=== PATIENT | female | born 1990 | race Caucasian/White ===

== ENCOUNTER → 2017-11-13 | Outpatient (CLI) | payer OTHER ==
[2017-11-13 10:15] LABS: ADD MAN DIFF? NO
[2017-11-13 10:47] LABS: BASO % 1 % (0-3); EOS # 0.2 x10^3/uL (0.0-0.7); EOS % 3 % (0-3); HEMATOCRIT 36.6 % (36.0-47.0); LYMPH # 1.8 x10^3/uL (1.0-4.8); LYMPH % 32 % (24-48); MEAN CORPUSCULAR HEMOGLOBIN 31 pg (25-35); MEAN CORPUSCULAR HGB CONC 36 g/dL (31-37); MEAN CORPUSCULAR VOLUME 87 fL (79-100); MONO # 0.4 x10^3/uL (0.0-1.1); MONO % 7 % (0-9); NEUT # 3.2 x10^3uL (1.8-7.7); NEUT % 57 % (31-73); PLATELET COUNT 256 x10^3/uL (140-400); RED BLOOD COUNT 4.19 x10^6/uL (3.50-5.40); WHITE BLOOD COUNT 5.6 x10^3/uL (4.0-11.0)
[2017-11-13 10:54] LABS: ALBUMIN/GLOBULIN RATIO 1.1 (1.0-1.7); ALK PHOS 106 U/L (46-116); ALT (SGPT) 30 U/L (14-59); ANION GAP 7 (6-14); AST (SGOT) 17 U/L (15-37); BLOOD UREA NITROGEN 15 mg/dL (7-20); BUN/CREATININE RATIO 19 (6-20); CALCIUM 8.9 mg/dL (8.5-10.1); CARBON DIOXIDE 28 mmol/L (21-32); CHLORIDE 100 mmol/L (98-107); CHOLESTEROL 175 mg/dL (0-200); CREATININE 0.8 mg/dL (0.6-1.0); GFR 87.4; GLUCOSE 185 mg/dL (70-99); HDLC 70 mg/dL (40-60); LDLC 91 mg/dL (0-100); NON-HDL CHOLESTEROL 105 mg/dL (0-129); POTASSIUM 3.7 mmol/L (3.5-5.1); SODIUM 135 mmol/L (136-145); TOTAL BILIRUBIN 0.4 mg/dL (0.2-1.0); TOTAL PROTEIN 7.7 g/dL (6.4-8.2); TRIGLYCERIDES 70 mg/dL (0-150); VLDLC 14 mg/dL (0-40)
[2017-11-13 10:55] LABS: CHOLESTEROL/HDL RATIO 2.5
[2017-11-13 11:04] LABS: THYROID STIM HORMONE (TSH) 5.573 uIU/mL (0.358-3.74)
[2017-11-13 22:20] LABS: MICROALBUMIN, RANDOM URINE 3.4 ug/mL (Not Estab.)
[2017-11-14 03:18] LABS: HEMOGLOBIN A1C 5.5 % (4.8-5.6)
== END | disposition home or self-care (01) ==
LOC: LAB 10:06
DX: E11.649 Type 2 diabetes mellitus with hypoglycemia without coma (principal)
CPT/HCPCS: 36415; 80053; 80061; 82043; 83036; 84443; 85025

== ENCOUNTER → 2017-12-25 | Outpatient (CLI) | payer OTHER ==
[2017-12-25 08:48] LABS: FREE T4 1.09 ng/dL (0.76-1.46); THYROID STIM HORMONE (TSH) 3.546 uIU/mL (0.358-3.74)
== END | disposition home or self-care (01) ==
LOC: LAB 07:26
PROVIDERS: ATTEND Family Medicine
DX: E03.9 Hypothyroidism, unspecified (principal); E11.649 Type 2 diabetes mellitus with hypoglycemia without coma
CPT/HCPCS: 36415; 84439; 84443

== ENCOUNTER → 2018-01-23 | Outpatient (CLI) | payer OTHER ==
[2018-01-23 16:09] LABS: BASO % 0 % (0-3); EOS # 0.1 x10^3/uL (0.0-0.7); EOS % 1 % (0-3); HEMATOCRIT 34.8 % (36.0-47.0); HEMOGLOBIN 12.5 g/dL (12.0-15.5); LYMPH # 1.3 x10^3/uL (1.0-4.8); LYMPH % 15 % (24-48); MEAN CORPUSCULAR HEMOGLOBIN 31 pg (25-35); MEAN CORPUSCULAR HGB CONC 36 g/dL (31-37); MEAN CORPUSCULAR VOLUME 86 fL (79-100); MONO # 0.6 x10^3/uL (0.0-1.1); MONO % 7 % (0-9); NEUT # 6.4 x10^3uL (1.8-7.7); NEUT % 77 % (31-73); PLATELET COUNT 207 x10^3/uL (140-400); RED BLOOD COUNT 4.03 x10^6/uL (3.50-5.40); WHITE BLOOD COUNT 8.3 x10^3/uL (4.0-11.0)
[2018-01-23 16:56] LABS: CALCIUM 9.1 mg/dL (8.5-10.1); CREATININE 0.8 mg/dL (0.6-1.0); GFR 86.7; POTASSIUM 3.5 mmol/L (3.5-5.1)
[2018-01-23 17:14] LABS: FREE T4 1.01 ng/dL (0.76-1.46); THYROID STIM HORMONE (TSH) 1.977 uIU/mL (0.358-3.74)
[2018-01-24 01:17] LABS: HEMOGLOBIN A1C 5.5 % (4.8-5.6)
== END | disposition home or self-care (01) ==
LOC: LAB 15:41
PROVIDERS: ATTEND Obstetrics & Gynecology
DX: Z32.01 Encounter for pregnancy test, result positive (principal); O24.911 Unspecified diabetes mellitus in pregnancy, first trimester
CPT/HCPCS: 80048; 83036; 84439; 84443; 84481; 85025; 86592; 86703; 86706; 86762; 86850; 86900; 86901; 87340

== ENCOUNTER → 2018-04-26 | Outpatient (CLI) | payer OTHER ==
[2018-04-26 12:16] LABS: BASO % 0 % (0-3); EOS # 0.1 x10^3/uL (0.0-0.7); EOS % 1 % (0-3); HEMATOCRIT 33.5 % (36.0-47.0); HEMOGLOBIN 12.2 g/dL (12.0-15.5); LYMPH # 0.9 x10^3/uL (1.0-4.8); LYMPH % 12 % (24-48); MEAN CORPUSCULAR HEMOGLOBIN 33 pg (25-35); MEAN CORPUSCULAR HGB CONC 36 g/dL (31-37); MEAN CORPUSCULAR VOLUME 90 fL (79-100); MONO # 0.4 x10^3/uL (0.0-1.1); MONO % 6 % (0-9); NEUT # 5.9 x10^3uL (1.8-7.7); NEUT % 81 % (31-73); PLATELET COUNT 191 x10^3/uL (140-400); RED BLOOD COUNT 3.71 x10^6/uL (3.50-5.40); RED CELL DISTRIBUTION WIDTH 13.6 % (11.5-14.5); WHITE BLOOD COUNT 7.3 x10^3/uL (4.0-11.0)
[2018-04-26 12:42] LABS: ALBUMIN/GLOBULIN RATIO 0.8 (1.0-1.7); CALCIUM 8.8 mg/dL (8.5-10.1); CREATININE 0.7 mg/dL (0.6-1.0); GFR 101.1; POTASSIUM 3.6 mmol/L (3.5-5.1); TOTAL BILIRUBIN 0.5 mg/dL (0.2-1.0); TOTAL PROTEIN 6.8 g/dL (6.4-8.2)
[2018-04-26 12:44] LABS: CHOLESTEROL/HDL RATIO 2.3
[2018-04-26 12:54] LABS: FREE T4 1.04 ng/dL (0.76-1.46); THYROID STIM HORMONE (TSH) 2.945 uIU/mL (0.358-3.74)
[2018-04-26 14:45] LABS: BILIRUBIN,URINE NEGATIVE (NEG); CLARITY,URINE CLEAR; COLOR,URINE YELLOW; NITRITE,URINE NEGATIVE (NEG); PROTEIN,URINE NEGATIVE (NEG-TRACE); UROBILINOGEN,URINE 0.2 mg/dL (0.2 mg/dL)
[2018-04-26 14:48] LABS: BACTERIA,URINE FEW /HPF (0-FEW); RBC,URINE 0 /HPF (0-2); SQUAMOUS EPITHELIAL CELL,UR MOD /LPF; WBC,URINE OCC /HPF (0-4)
[2018-04-27 00:12] LABS: HEMOGLOBIN A1C 4.9 % (4.8-5.6)
== END | disposition home or self-care (01) ==
LOC: LAB 11:31
PROVIDERS: ATTEND Family Medicine
DX: Z00.00 Encounter for general adult medical examination without abnormal findings (principal)
CPT/HCPCS: 36415; 80053; 80061; 81001; 82043; 83036; 84439; 84443; 84481; 85025; 87086

== ENCOUNTER 2018-05-14 14:44 | Emergency (ER) | payer OTHER ==
[~2018-05-14] VITALS: Ht 170.2 cm; Wt 70.3 kg
[2018-05-14 15:25] LABS: BASO % 0 % (0-3); EOS # 0.1 x10^3/uL (0.0-0.7); EOS % 1 % (0-3); HEMATOCRIT 31.4 % (36.0-47.0); HEMOGLOBIN 10.9 g/dL (12.0-15.5); LYMPH % 14 % (24-48); MEAN CORPUSCULAR HEMOGLOBIN 32 pg (25-35); MEAN CORPUSCULAR HGB CONC 35 g/dL (31-37); MEAN CORPUSCULAR VOLUME 91 fL (79-100); MONO # 0.5 x10^3/uL (0.0-1.1); MONO % 7 % (0-9); NEUT # 5.8 x10^3uL (1.8-7.7); NEUT % 78 % (31-73); PLATELET COUNT 183 x10^3/uL (140-400); RED BLOOD COUNT 3.46 x10^6/uL (3.50-5.40); RED CELL DISTRIBUTION WIDTH 13.3 % (11.5-14.5); WHITE BLOOD COUNT 7.4 x10^3/uL (4.0-11.0)
[2018-05-14] MEDS ORDERED: PNV1TABL25 PO (15:26)
[2018-05-14] MEDS ORDERED: INSU100C SQ (15:26)
[2018-05-14] MEDS ORDERED: LEVO25TA55 PO (15:26)
[2018-05-14] MEDS ORDERED: INSU100I13 SQ (15:26)
[2018-05-14] MEDS ORDERED: IV NORMAL SALINE 1000ML BAG 1,000 ML IV ONE (15:30)
[2018-05-14] MEDS ORDERED: ACETAMINOPHEN 500 MG TABLET PO ONE (15:30)
[2018-05-14 15:32] LABS: BILIRUBIN,URINE NEGATIVE (NEG); CLARITY,URINE CLEAR; COLOR,URINE YELLOW; NITRITE,URINE NEGATIVE (NEG); PH,URINE 6.5; PROTEIN,URINE NEGATIVE (NEG-TRACE); UROBILINOGEN,URINE 0.2 mg/dL (0.2 mg/dL)
[2018-05-14 15:32] LABS: CALCIUM 8.8 mg/dL (8.5-10.1); CREATININE 0.5 mg/dL (0.6-1.0); GFR 149.1; POTASSIUM 3.3 mmol/L (3.5-5.1)
[2018-05-14 15:36] LABS: BACTERIA,URINE 0 /HPF (0-FEW); RBC,URINE 0 /HPF (0-2); SQUAMOUS EPITHELIAL CELL,UR FEW /LPF; WBC,URINE 0 /HPF (0-4)
[2018-05-14 15:38] LABS: ALBUMIN 2.7 g/dL (3.4-5.0); ALBUMIN/GLOBULIN RATIO 0.7 (1.0-1.7); TOTAL BILIRUBIN 0.4 mg/dL (0.2-1.0); TOTAL PROTEIN 6.6 g/dL (6.4-8.2)
[2018-05-14] MEDS ORDERED: POTASSIUM CHLORIDE 20 MEQ TABLET.ER. PO ONE (16:15)
[2018-05-14 17:45] VITALS: BP 110/64
--- NOTE | 2018-05-14 17:57 | PHYS DOC ---
Past Medical History Past Medical History: Diabetes-Type I, Hypothyroid Past Surgical History: No Surgical History Alcohol Use: None Drug Use: None Adult General Chief Complaint Chief Complaint: HEADACHE HPI HPI Patient is a 28 year old [f__sex] who presents with [] Review of Systems Review of Systems Constitutional: Denies fever or chills [] Eyes: Denies change in visual acuity, redness, or eye pain [] HENT: Denies nasal congestion or sore throat [] Respiratory: Denies cough or shortness of breath [] Cardiovascular: No additional information not addressed in HPI [] GI: Denies abdominal pain, nausea, vomiting, bloody stools or diarrhea [] : Denies dysuria or hematuria [] Musculoskeletal: Denies back pain or joint pain [] Integument: Denies rash or skin lesions [] Neurologic: Denies headache, focal weakness or sensory changes [] Endocrine: Denies polyuria or polydipsia [] All other systems were reviewed and found to be within normal limits, except as documented in this note. Current Medications Current Medications Current Medications Medications (Trade) Dose Ordered Sig/Rosemary Start Time Stop Time Status Last Admin Dose Admin Acetaminophen (Tylenol) 1,000 mg 1X ONCE 05/14/18 15:30 05/14/18 15:31 DC 05/14/18 15:42 1,000 MG Potassium Chloride (Klor-Con) 40 meq 1X ONCE 05/14/18 16:15 05/14/18 16:16 DC 05/14/18 16:18 40 MEQ Sodium Chloride 1,000 ml @ 1,000 mls/hr 1X ONCE 05/14/18 15:30 05/14/18 16:29 DC 05/14/18 15:43 1,000 MLS/HR Allergies Allergies Allergies Coded Allergies Type Severity Reaction Last Updated Verified No Known Drug Allergies 05/14/18 No Physical Exam Physical Exam Constitutional: Well developed, well nourished, no acute distress, non-toxic appearance. [] HENT: Normocephalic, atraumatic, bilateral external ears normal, oropharynx moist, no oral exudates, nose normal. [] Eyes: PERRLA, EOMI, conjunctiva normal, no discharge. [] Neck: Normal range of motion, no tenderness, supple, no stridor. [] Cardiovascular:Heart rate regular rhythm, no murmur [] Lungs & Thorax: Bilateral breath sounds clear to auscultation [] Abdomen: Bowel sounds normal, soft, no tenderness, no masses, no pulsatile masses. [] Skin: Warm, dry, no erythema, no rash. [] Back: No tenderness, no CVA tenderness. [] Extremities: No tenderness, no cyanosis, no clubbing, ROM intact, no edema. [] Neurologic: Alert and oriented X 3, normal motor function, normal sensory function, no focal deficits noted. [] Psychologic: Affect normal, judgement normal, mood normal. [] Current Patient Data Vital Signs Vital Signs Date Time Temp Pulse Resp B/P (MAP) Pulse Ox O2 Delivery O2 Flow Rate FiO2 05/14/18 15:44 80 18 100 05/14/18 15:05 98.1 154/71 (98) Room Air 98.1 Lab Values Laboratory Tests Test 05/14/18 15:12 05/14/18 15:18 White Blood Count 7.4 x10^3/uL (4.0-11.0) Red Blood Count 3.46 x10^6/uL (3.50-5.40) L Hemoglobin 10.9 g/dL (12.0-15.5) L Hematocrit 31.4 % (36.0-47.0) L Mean Corpuscular Volume 91 fL (79-100) Mean Corpuscular Hemoglobin 32 pg (25-35) Mean Corpuscular Hemoglobin Concent 35 g/dL (31-37) Red Cell Distribution Width 13.3 % (11.5-14.5) Platelet Count 183 x10^3/uL (140-400) Neutrophils (%) (Auto) 78 % (31-73) H Lymphocytes (%) (Auto) 14 % (24-48) L Monocytes (%) (Auto) 7 % (0-9) Eosinophils (%) (Auto) 1 % (0-3) Basophils (%) (Auto) 0 % (0-3) Neutrophils # (Auto) 5.8 x10^3uL (1.8-7.7) Lymphocytes # (Auto) 1.0 x10^3/uL (1.0-4.8) Monocytes # (Auto) 0.5 x10^3/uL (0.0-1.1) Eosinophils # (Auto) 0.1 x10^3/uL (0.0-0.7) Basophils # (Auto) 0.0 x10^3/uL (0.0-0.2) Sodium Level 138 mmol/L (136-145) Potassium Level 3.3 mmol/L (3.5-5.1) L Chloride Level 105 mmol/L (98-107) Carbon Dioxide Level 24 mmol/L (21-32) Anion Gap 9 (6-14) Blood Urea Nitrogen 8 mg/dL (7-20) Creatinine 0.5 mg/dL (0.6-1.0) L Estimated GFR (Cockcroft-Gault) 149.1 BUN/Creatinine Ratio 16 (6-20) Glucose Level 128 mg/dL (70-99) H Calcium Level 8.8 mg/dL (8.5-10.1) Total Bilirubin 0.4 mg/dL (0.2-1.0) Aspartate Amino Transferase (AST) 34 U/L (15-37) Alanine Aminotransferase (ALT) 62 U/L (14-59) H Alkaline Phosphatase 96 U/L (46-116) Total Protein 6.6 g/dL (6.4-8.2) Albumin 2.7 g/dL (3.4-5.0) L Albumin/Globulin Ratio 0.7 (1.0-1.7) L Urine Collection Type Unknown Urine Color Yellow Urine Clarity Clear Urine pH 6.5 Urine Specific [place] 1.010 Urine Protein Negative mg/dL (NEG-TRACE) Urine Glucose (UA) Negative mg/dL (NEG) Urine Ketones (Stick) Negative mg/dL (NEG) Urine Blood Negative (NEG) Urine Nitrite Negative (NEG) Urine Bilirubin Negative (NEG) Urine Urobilinogen Dipstick 0.2 mg/dL (0.2 mg/dL) Urine Leukocyte Esterase Negative (NEG) Urine RBC 0 /HPF (0-2) Urine WBC 0 /HPF (0-4) Urine Squamous Epithelial Cells Few /LPF Urine Bacteria 0 /HPF (0-FEW) Laboratory Tests 05/14/18 15:12 Laboratory Tests 05/14/18 15:12 EKG EKG [] Radiology/Procedures Radiology/Procedures [] Course & Med Decision Making Course & Med Decision Making Pertinent Labs and Imaging studies reviewed. (See chart for details) [] Dragon Disclaimer Dragon Disclaimer This electronic medical record was generated, in whole or in part, using a voice recognition dictation system. Departure Departure Impression: Primary Impression: Headache Additional Impression: Blurry vision, bilateral Disposition: 01 HOME, SELF-CARE Condition: STABLE Referrals: RASHID ARANA MD (PCP) JOJO CHIN MD Patient Instructions: Migraine Headache Additional Instructions: Follow up with your OB and Neurology for further investigation into your headache. If worsening, return to the ED. Problem Qualifiers GUERA LAM APRN May 14, 2018 17:57
== END 2018-05-14 18:13 | disposition home or self-care (01) ==
LOC: ER 14:44
DX: R51 Headache (principal); H53.8 Other visual disturbances; E10.9 Type 1 diabetes mellitus without complications; E03.9 Hypothyroidism, unspecified
CPT/HCPCS: 36415; 80053; 81001; 85025; 99283; J7030

== ENCOUNTER 2018-06-19 10:29 | Observation (INO) | payer OTHER ==
[~2018-06-19 10:29] MED LIST: INSU100C SQ; INSU100I13 SQ; LEVO25TA55 PO; PNV1TABL25 PO
[2018-06-19 11:13] LABS: BILIRUBIN,URINE NEGATIVE (NEG); CLARITY,URINE CLEAR; COLOR,URINE YELLOW; NITRITE,URINE NEGATIVE (NEG); PROTEIN,URINE NEGATIVE (NEG-TRACE)
[2018-06-19 11:19] LABS: SQUAMOUS EPITHELIAL CELL,UR MANY /LPF
[2018-06-19 11:20] LABS: BACTERIA,URINE FEW /HPF (0-FEW); RBC,URINE 0 /HPF (0-2); WBC,URINE OCC /HPF (0-4)
[2018-06-19 11:21] LABS: BARBITURATES NEG (NEG); BENZODIAZEPINES NEG (NEG); CANNABINOIDS NEG (NEG); COCAINE NEG (NEG); METHADONE NEG (NEG); OPIATES NEG (NEG); PHENCYCLIDINE NEG (NEG)
[2018-06-19 11:24] LABS: AMPHETAMINE/METHAMPHETAMINE NEG (NEG)
== END 2018-06-19 11:35 | disposition home or self-care (01) ==
LOC: 3 SO LND 10:29
PROVIDERS: ADMIT Obstetrics & Gynecology; ATTEND Obstetrics & Gynecology
DX: O24.013 Pre-existing type 1 diabetes mellitus, in pregnancy, third trimester (principal); E10.9 Type 1 diabetes mellitus without complications; Z3A.28 28 weeks gestation of pregnancy
CPT/HCPCS: 80307; 81001; G0379; 59025

== ENCOUNTER 2018-06-26 11:53 | Observation (INO) | payer OTHER ==
[2018-06-26] MEDS ORDERED: IV RINGERS,LACTATED 1000ML 1,000 ML IV SCH (12:10)
[2018-06-26 12:30] LABS: BILIRUBIN,URINE NEGATIVE (NEG); CLARITY,URINE CLEAR; COLOR,URINE YELLOW; NITRITE,URINE NEGATIVE (NEG); PROTEIN,URINE NEGATIVE (NEG-TRACE)
[2018-06-26 12:51] LABS: BACTERIA,URINE 0 /HPF (0-FEW); SQUAMOUS EPITHELIAL CELL,UR MOD /LPF; WBC,URINE OCC /HPF (0-4)
--- NOTE | 2018-06-26 13:27 | RAD ---
Biophysical profile History: Type 1 diabetes Findings: A single intrauterine is present in the cephalic position. heart rate is 141. breathing movements: 2 out of 2. motion: 2 out of 2. tone: 2 out of 2. Amniotic fluid volume: 2 out of 2. Therefore, the biophysical profile score is 8 out of 8. JIA using the 4 quadrant method is 19.2 cm. Impression: Biophysical profile score is 8 out of 8. Electronically signed by: Waldemar Terrell MD (06/26/2018 1:24 PM) [id number]
== END 2018-06-26 13:00 | disposition home or self-care (01) ==
LOC: 3 SO LND 11:53
PROVIDERS: ADMIT Obstetrics & Gynecology; ATTEND Obstetrics & Gynecology
DX: O24.013 Pre-existing type 1 diabetes mellitus, in pregnancy, third trimester (principal); Z3A.29 29 weeks gestation of pregnancy
CPT/HCPCS: 76819; 81001; G0379; 59025

== ENCOUNTER 2018-07-03 10:03 | Observation (INO) | payer OTHER ==
[~2018-07-03] VITALS: Ht 170.2 cm; Wt 77.1 kg
[~2018-07-03 10:03] MED LIST changes: -DOCU-109 PO; -IBUP-1027 PO; -OXYC1TAB15 PO
--- NOTE | 2018-07-03 12:03 | RAD ---
EXAM: biophysical profile. HISTORY: Diabetes. TECHNIQUE: Sonographic imaging of a gravid uterus was performed. COMPARISON: 06/26/2018. FINDINGS: There is a single intrauterine fetus in cephalic presentation with a heart rate of 152 beats per minute. There is normal breathing motion, body motion and tone and the anatomic fluid volume is normal. The amniotic fluid index is 16.1 cm. The biparietal diameter is 8.36 cm, corresponding with 33 weeks and 5 days and the 98th percentile. The head circumference is 31.44 cm, corresponding with 35 weeks and 2 days and the 99th percentile. The abdominal circumference is 31.01 cm, corresponding with 35 weeks and 0 days, not within range for assessment of a growth percentile. The femoral length is 6.13 cm, corresponding with 31 weeks and 6 days and the 67th percentile. The estimated weight based on ultrasound measurements is 2326 g and the estimated weight is at the 91st percentile for an estimated gestational age of 30 weeks and 5 days based on LMP. The estimated gestational age based on ultrasound measurements is 34 weeks and 0 days and the estimated due date is 08/14/2018. IMPRESSION: 1. Single intrauterine fetus in cephalic presentation with a heart rate of 152 bpm and biophysical profile 8/8. 2. Estimated weight based on ultrasound measurements at the 91st percentile for a gestational age based on LMP of 30 weeks and 5 days. The gestational age based on ultrasound measurements is 34 weeks and 0 days, described in detail above. Electronically signed by: Margarita Miles MD (07/03/2018 12:00 PM) [id number]
== END 2018-07-03 11:23 | disposition home or self-care (01) ==
LOC: 3 SO LND 10:03
PROVIDERS: ADMIT Obstetrics & Gynecology; ATTEND Obstetrics & Gynecology
DX: O24.813 Other pre-existing diabetes mellitus in pregnancy, third trimester (principal); Z3A.30 30 weeks gestation of pregnancy
CPT/HCPCS: 76819; G0379

== ENCOUNTER → 2018-07-03 | Outpatient (CLI) | payer OTHER ==
[~2018-07-03] MED LIST changes: +DOCU-109 PO; +IBUP-1027 PO; +OXYC1TAB15 PO
[2018-07-03 11:44] LABS: BASO % 0 % (0-3); EOS # 0.1 x10^3/uL (0.0-0.7); EOS % 1 % (0-3); HEMATOCRIT 30.8 % (36.0-47.0); HEMOGLOBIN 10.6 g/dL (12.0-15.5); LYMPH # 1.1 x10^3/uL (1.0-4.8); LYMPH % 13 % (24-48); MEAN CORPUSCULAR HEMOGLOBIN 31 pg (25-35); MEAN CORPUSCULAR HGB CONC 35 g/dL (31-37); MEAN CORPUSCULAR VOLUME 90 fL (79-100); MONO # 0.4 x10^3/uL (0.0-1.1); MONO % 6 % (0-9); NEUT # 6.3 x10^3uL (1.8-7.7); NEUT % 80 % (31-73); PLATELET COUNT 136 x10^3/uL (140-400); RED BLOOD COUNT 3.41 x10^6/uL (3.50-5.40); RED CELL DISTRIBUTION WIDTH 13.1 % (11.5-14.5); WHITE BLOOD COUNT 7.9 x10^3/uL (4.0-11.0)
== END | disposition home or self-care (01) ==
LOC: LAB 09:54
PROVIDERS: ATTEND Obstetrics & Gynecology
DX: O09.93 Supervision of high risk pregnancy, unspecified, third trimester (principal); Z3A.30 30 weeks gestation of pregnancy
CPT/HCPCS: 36415; 85025

== ENCOUNTER 2018-07-08 11:41 | Observation (INO) | payer OTHER ==
[~2018-07-08 11:41] MED LIST changes: -DOCU-109 PO; -IBUP-1027 PO; -OXYC1TAB15 PO
--- NOTE | 2018-07-08 15:09 | RAD ---
Ultrasound biophysical profile, 07/08/2018: HISTORY: Maternal diabetes The limited exam of the gravid uterus demonstrates a single fetus in a cephalic orientation. The heart rate is 133 bpm. The amniotic fluid index is 21.3. It measured 16.1 on the previous study of 06/25/2018. This difference may be on a technical basis. The placenta lies posteriorly extending into the fundal region. The weight was estimated at 5 pounds and 3 ounces +/- 12 ounces. The following biophysical profile scores were obtained: breathing movements-2 motion-2 tone-2 Amniotic fluid volume-2 Total score-8 out of 8: IMPRESSION: 1. The ultrasound component of the biophysical profile score is 8 out of 8. 2. The measured amniotic fluid index has increased and is now at the upper limits of normal, measuring 21.3. Electronically signed by: Alex Sun MD (07/08/2018 3:05 PM) [facility]
== END 2018-07-08 12:55 | disposition home or self-care (01) ==
LOC: 3 SO LND 11:41
PROVIDERS: ADMIT Obstetrics & Gynecology; ATTEND Obstetrics & Gynecology
DX: O24.013 Pre-existing type 1 diabetes mellitus, in pregnancy, third trimester (principal); Z3A.31 31 weeks gestation of pregnancy
CPT/HCPCS: 76819; G0379; 59025

== ENCOUNTER → 2018-07-08 | Outpatient (CLI) | payer OTHER ==
[~2018-07-08] MED LIST changes: +DOCU-109 PO; +IBUP-1027 PO; +OXYC1TAB15 PO
[2018-07-09 04:14] LABS: HEMOGLOBIN A1C 5.4 % (4.8-5.6)
== END | disposition home or self-care (01) ==
LOC: LAB 11:33
PROVIDERS: ATTEND Obstetrics & Gynecology
DX: O09.93 Supervision of high risk pregnancy, unspecified, third trimester (principal); Z3A.31 31 weeks gestation of pregnancy
CPT/HCPCS: 36415; 83036; 84443

== ENCOUNTER 2018-07-17 11:56 | Observation (INO) | payer OTHER ==
[2018-07-17 12:27] LABS: BILIRUBIN,URINE NEGATIVE (NEG); CLARITY,URINE CLEAR; COLOR,URINE YELLOW; NITRITE,URINE NEGATIVE (NEG); PH,URINE 6.5; PROTEIN,URINE NEGATIVE (NEG-TRACE)
[2018-07-17] MEDS ORDERED: IV RINGERS,LACTATED 1000ML 1,000 ML IV SCH (12:30)
[2018-07-17 12:40] LABS: BACTERIA,URINE MODERATE /HPF (0-FEW); SQUAMOUS EPITHELIAL CELL,UR MANY /LPF
--- NOTE | 2018-07-17 14:40 | RAD ---
Biophysical profile: Clinical indications: Maternal diabetes. Weekly nonstress test. Findings: A single intrauterine is present in the cephalic position. heart rate is 123. breathing movements: 2. motion: 2. tone: 2. Amniotic fluid volume: 2. Therefore, the biophysical profile score is 8 out of 8. Cervical length is 3.2 cm. JIA using the 4 quadrant method is 12.7 cm. Impression: Biophysical profile score is 8 out of 8. Electronically signed by: Gene West MD (07/17/2018 2:38 PM) [place] [id number]
== END 2018-07-17 14:45 | disposition home or self-care (01) ==
LOC: 3 SO LND 11:56
PROVIDERS: ADMIT Obstetrics & Gynecology; ATTEND Obstetrics & Gynecology
DX: O24.013 Pre-existing type 1 diabetes mellitus, in pregnancy, third trimester (principal); Z3A.32 32 weeks gestation of pregnancy
CPT/HCPCS: 76819; 81001; 87086; G0378; G0379; 59025

== ENCOUNTER 2018-07-24 15:30 | Observation (INO) | payer OTHER ==
--- NOTE | 2018-07-24 18:36 | RAD ---
Obstetric ultrasound limited: Reason for examination: Biophysical profile for type 1 diabetes. Cervix is normal in length at 4.1 cm and is closed. The placenta is posterior with limited visualization. Single viable intrauterine gestation is present with a cardiac rate of 143 bpm. Fetus is in cephalic presentation. Adequate amniotic fluid is present with a amniotic fluid index of 12.2 cm. Biparietal diameter is 9.13 cm corresponding to gestational age of 37 weeks 0 days. Head circumference is 32.12 cm corresponding to gestational age of 36 weeks 2 days. Abdominal circumference is 33.65 cm corresponding to gestational age of 37 weeks 4 days. Femur length is 6.56 cm corresponding to gestational age of 33 weeks 6 days. Cephalic index 86.7. Head circumference to abdominal circumference ratio 0.95. Femur length to biparietal parietal diameter ratio 71.9. Femur length to head circumference ratio is 20.4. Femur length to abdominal circumference ratio is 19.5. Estimated weight 2942 g (6 lbs. 8 oz.). Estimated gestational age by last menstrual period 33 weeks 5 days with estimated date of confinement of 09/06/2018. Estimated gestational age is 36 weeks 1 day with estimated date of confinement of 08/20/2018. Biophysical profile: breathing movement 2. motion 2. tone 2. Amniotic fluid volume 2. Total score 8 out of 8. IMPRESSION: Single viable intrauterine gestation with mean gestational age estimated at 36 weeks 1 day with an estimated date of confinement of 08/20/2018. This is 2 weeks old than clinical dates. Biophysical profile score 8 out of 8. Electronically signed by: Michelle Hassan MD (07/24/2018 6:33 PM) [facility]
== END 2018-07-24 17:47 | disposition home or self-care (01) ==
LOC: 3 SO LND 15:30
PROVIDERS: ADMIT Obstetrics & Gynecology; ATTEND Obstetrics & Gynecology
DX: O24.013 Pre-existing type 1 diabetes mellitus, in pregnancy, third trimester (principal); Z3A.33 33 weeks gestation of pregnancy
CPT/HCPCS: 76815; G0378; G0379; 59025

== ENCOUNTER 2018-08-01 11:30 | Observation (INO) | payer OTHER ==
--- NOTE | 2018-08-01 13:53 | RAD ---
Biophysical profile Clinical Indication: diabetic; weekly BPP Technique: Multiple grayscale images of the pelvis are obtained. Findings: A single intrauterine is present in the cephalic position. heart rate is 131 beats per minute. breathing movements: 2 out of 2. motion: 2 out of 2. tone: 2 out of 2. Amniotic fluid volume: 2 out of 2. Therefore, the biophysical profile score is 8 out of 8. JIA using the 4 quadrant method is 15.9 cm. Cervix length is 3.1 cm. BPD = 9.1 cm for 36 weeks 6 days. HC = 31.6 cm for 35 weeks 4 days. AC = 34 cm for 37 weeks 6 days. FL = 7 cm for 35 weeks 6 days. HC/AC ratio = 0.93. Overall estimated sonographic gestational age is 36 weeks and 4 days. EDC ultrasound is August 25, 2018. IMPRESSION: Biophysical profile score is 8 out of 8. Electronically signed by: Jony Rankin MD (08/01/2018 1:51 PM) [id number]
== END 2018-08-01 13:29 | disposition home or self-care (01) ==
LOC: 3 SO LND 11:30
PROVIDERS: ADMIT Obstetrics & Gynecology; ATTEND Obstetrics & Gynecology
DX: O24.013 Pre-existing type 1 diabetes mellitus, in pregnancy, third trimester (principal); Z3A.34 34 weeks gestation of pregnancy
CPT/HCPCS: 76819; G0378; G0379; 59025

== ENCOUNTER 2018-08-13 00:11 | Observation (INO) | payer OTHER ==
--- NOTE | 2018-08-13 02:01 | RAD ---
Examination: Ultrasound Biophysical profile HISTORY: History of type 1 diabetes COMPARISON: None available. FINDINGS: breathing movements is 0 / 2. motion is 2 / 2. tone is 2 / 2. Amniotic fluid index is 2 / 2. position is cephalic. heart rate 137 bpm. Estimated weight 3465 g. Biparietal diameter measures 9.4 cm corresponding to 38 weeks and 2 days. Head circumference measures 33.4 cm corresponding to 38 weeks and 2 days. Abdominal circumference measures 34.8 cm corresponding to 38 weeks and 5 days. Femur length measures 7.3 cm corresponding to 37 weeks and 4 days. LMP is 11/30/2017 Clinical age 36 weeks and 4 days with expected date of delivery by LMP 09/06/2018. Ultrasound age 38 weeks and 2 days with expected date of delivery by ultrasound 08/25/2018. Cephalic index 82.3. Head circumference to abdominal circumference ratio 0.9 Femur length to biparietal diameter ratio 77.9 Femur length head circumference is 21.9 Femur length abdominal circumference ratio 21.1 IMPRESSION: The biophysical profile score is 6 / 8. Electronically signed by: Waldemar Terrell MD (08/13/2018 1:58 AM) [id number]
== END 2018-08-13 01:40 | disposition home or self-care (01) ==
LOC: 3 SO LND 00:11
PROVIDERS: ADMIT Obstetrics & Gynecology; ATTEND Obstetrics & Gynecology
DX: O24.013 Pre-existing type 1 diabetes mellitus, in pregnancy, third trimester (principal); Z3A.38 38 weeks gestation of pregnancy
CPT/HCPCS: 76819; G0379; 59025

== ENCOUNTER 2018-08-15 09:51 | Observation (INO) | payer OTHER ==
--- NOTE | 2018-08-15 11:21 | RAD ---
Ultrasound biophysical profile scoring, 08/15/2018: HISTORY: Type 1 diabetes, high risk The limited exam of the gravid uterus demonstrates a single fetus in a cephalic orientation. The heart rate is 133 bpm. A full survey was not performed at this time. The placenta is located posteriorly extending into the fundal region. The placenta demonstrates multiple echogenic foci. A normal amount of amniotic fluid is present with the JIA calculated at 11.6. The following biophysical profile scores were obtained: breathing movements-2 motion-2 tone-2 Amniotic fluid volume-2 Total score-8 out of 8 IMPRESSION: The ultrasound component of the biophysical profile score is 8 out of 8. Electronically signed by: Alex Sun MD (08/15/2018 11:18 AM) [facility]
== END 2018-08-15 11:42 | disposition home or self-care (01) ==
LOC: 3 SO LND 09:51
PROVIDERS: ADMIT Obstetrics & Gynecology; ATTEND Obstetrics & Gynecology
DX: O24.013 Pre-existing type 1 diabetes mellitus, in pregnancy, third trimester (principal); Z3A.36 36 weeks gestation of pregnancy
CPT/HCPCS: 76819; G0378; G0379; 59025

== ENCOUNTER 2018-08-22 09:51 | Observation (INO) | payer OTHER ==
--- NOTE | 2018-08-22 11:54 | RAD ---
Ultrasound biophysical profile, 08/22/2018: History: Diabetes The limited exam of the gravid uterus demonstrates a single fetus in a cephalic orientation. The heart rate is 140 bpm. The placenta lies posteriorly extending into the fundal region. There are prominent echogenic foci in the placenta. The amniotic fluid index is 18.8. weight estimate was requested and was calculated at 10 pounds and 1 ounce +/- 24 ounces. A full survey was not performed. The following biophysical profile scores were obtained: breathing movements-2 motion-2 tone-2 Amniotic fluid volume-2 Total score-8 out of 8: IMPRESSION: 1. The ultrasound component of the biophysical profile score is 8 out of 8. 2. The weight was estimated at 10 pounds and 1 ounce +/- 24 ounces.
== END 2018-08-22 11:30 | disposition home or self-care (01) ==
LOC: 3 SO LND 09:51
PROVIDERS: ADMIT Obstetrics & Gynecology; ATTEND Obstetrics & Gynecology
DX: O24.013 Pre-existing type 1 diabetes mellitus, in pregnancy, third trimester (principal); Z3A.37 37 weeks gestation of pregnancy
CPT/HCPCS: 76819; G0378; G0379

== ENCOUNTER 2018-08-25 05:22 | Inpatient (IN) | payer OTHER ==
[~2018-08-25] VITALS: Ht 170.2 cm; Wt 83.0 kg
[2018-08-25] VITALS (7 sets, daily range): BP systolic 119–144; BP diastolic 80–99
[2018-08-25] MEDS ORDERED: CITRIC ACID/SODIUM CITRATE 30 ML SOLUTION. ONE (06:10)
[2018-08-25] MEDS ORDERED: CITRIC ACID/SODIUM CITRATE 30 ML SOLUTION. PO ONE (06:30)
[2018-08-25] MEDS: IV RINGERS,LACTATED 1000ML 1,000 ML IV SCH ×3 (06:55→21:18)
[2018-08-25] MEDS ORDERED: fentaNYL PF VIAL 100 MCG/2 ML VIAL ONE (07:47)
[2018-08-25] MEDS ORDERED: PHENYLEPHRINE in 0.9% NACL PF 1 MG/10 ML SYRINGE. IV ONE (07:47)
[2018-08-25] MEDS ORDERED: MORPHINE PF 5 MG/10 ML VIAL. ONE (07:47)
[2018-08-25] MEDS ORDERED: ePHEDrine PF IN SALINE 50 MG/10 ML SYRINGE. IV ONE (07:47)
[2018-08-25] MEDS ORDERED: ONDANSETRON PF 4 MG/2 ML VIAL. ONE (07:48)
[2018-08-25] MEDS ORDERED: FAMOTIDINE 20 MG/2 ML VIAL ONE (07:48)
[2018-08-25] MEDS ORDERED: OXYTOCIN 10 UNIT/ML VIAL. ONE ×2 (07:48→08:41)
[2018-08-25] MEDS ORDERED: METOCLOPRAMIDE HCL 10 MG/2 ML VIAL. ONE (07:48)
--- NOTE | 2018-08-25 08:06 | PDOC1 ---
OB - History Hx of Present Care: Good Care Ultrasounds: Normal mid trimester US Obstetrical Complications: None Medical Complications: Other (DM Type 1) Past Family/Social History * Past Medical, Surgical, Family and Obstetric Histories reviewed from chart. Rubella: Immune RPR/VDRL: Negative GBS Status: Negative HBsAG: Negative OB - Chief Complaint & HPI Date of Admission: Date of Admission: August 25, 2018 at 05:22 Chief Complaint/History : 1 Para: 0 EGA: 37 Reason for admission: section Indication for : other (DM Type 1 and LGA) Admission Nurse Assessment Rev: Yes OB - Admission Exam Physical Exam Vitals: VS - Last 72 Hours, by Label Date Time Temp Pulse Resp B/P (MAP) Pulse Ox O2 Delivery O2 Flow Rate FiO2 08/25/18 06:37 97.8 71 20 141/99 (113) Room Air 97.8 HEENT: Normal Heart: Regular Rate Lungs: Clear Abdomen: Gravid, Non tender, Soft Extremities: Edema Reflexes: Normal Cervical Dilatation: 2cm Effacement: 50% Station: -3 Membranes: Intact Heart Rate: Normal Accelerations: Accelerations Present Decelerations: No decelerations Contractions on Admission: 6-10 Minutes Apart Intensity: Mild Text A: 37 wks IUP DM Type 1 LGA P: Admit for c/s. GREG TAPIA Jr, MD August 25, 2018 08:06
[2018-08-25 08:47] LABS: BASO % 0 % (0-3); EOS # 0.1 x10^3/uL (0.0-0.7); EOS % 2 % (0-3); HEMATOCRIT 32.9 % (36.0-47.0); HEMOGLOBIN 11.3 g/dL (12.0-15.5); LYMPH # 1.6 x10^3/uL (1.0-4.8); LYMPH % 23 % (24-48); MEAN CORPUSCULAR HEMOGLOBIN 31 pg (25-35); MEAN CORPUSCULAR HGB CONC 35 g/dL (31-37); MEAN CORPUSCULAR VOLUME 90 fL (79-100); MONO # 0.7 x10^3/uL (0.0-1.1); MONO % 9 % (0-9); NEUT # 4.6 x10^3uL (1.8-7.7); NEUT % 65 % (31-73); PLATELET COUNT 109 x10^3/uL (140-400); RED BLOOD COUNT 3.65 x10^6/uL (3.50-5.40); RED CELL DISTRIBUTION WIDTH 13.5 % (11.5-14.5)
[2018-08-25] MEDS ORDERED: SIMETHICONE 80 MG TAB.CHEW PO PRN (09:00)
[2018-08-25] MEDS ORDERED: ONDANSETRON PF 4 MG/2 ML VIAL. IV PRN (09:00)
[2018-08-25] MEDS ORDERED: MAG HYDROX/ALUMINUM HYD/SIMETH 30 ML ORAL.SUSP PO PRN (09:00)
[2018-08-25] MEDS ORDERED: OXYTOCIN 30 UNIT/500 ML PREMIX 500 ML IV PRN (09:00)
[2018-08-25] MEDS ORDERED: diphenhydrAMINE ORAL ELIXIR 12.5 MG/5 ML ML PO PRN (09:00)
[2018-08-25] MEDS ORDERED: 0.9 % SODIUM CHLORIDE 10 ML DISP.SYRIN. IV PRN (09:00)
[2018-08-25] MEDS ORDERED: KETOROLAC 30 MG/ML VIAL. IV PRN (09:00)
[2018-08-25] MEDS ORDERED: ZOLPIDEM 5 MG TABLET. PO PRN (09:00)
--- NOTE | 2018-08-25 09:00 | PDOC4 ---
OB Operative Note Date: August 25, 2018 PRE OP DIAGNOSIS: Other (DM Type 1 and LGA) POST OP DIAGNOSIS: Other (Same) OPERATION PERFORMED: [facility] Surgeon Dr. Rosen Anesthesia: Regional (Spinal) Blood Loss 700 ml Specimen placenta and OB Findings: Position (Vertex), Sex (Male), (8/9), Weight (8 Lb 14 oz), Nuchal Cord (x1) Complications none Additional Remarks pt. GREG Garcia Jr, MD August 25, 2018 09:00
--- NOTE | 2018-08-25 09:27 | OP ---
DATE OF SURGERY: PREOPERATIVE DIAGNOSES: 1. Diabetes type 1. 2. LGA. POSTOPERATIVE DIAGNOSES: 1. Diabetes type 1. 2. LGA. PROCEDURE: Primary low transverse section. SURGEON: Greg Rosen MD ANESTHESIA: Spinal. ESTIMATED BLOOD LOSS: 700 mL. COMPLICATIONS: None. FINDINGS: Viable male , Apgars 8 and 9, weight 8 pounds 14 ounces, nuchal cord x 1, 3-vessel cord placenta delivered manually intact. SUMMARY: 1 at 37-1/2 weeks' gestation who presented for primary low transverse section secondary to diabetes type 1 and LGA . The patient was counseled on risks, benefits and expectations and voiced clear understanding to proceed. DESCRIPTION OF PROCEDURE: The patient was taken to surgery suite and placed in dorsal supine position. She was prepped with ChloraPrep and draped in a sterile fashion. After adequate anesthesia, a Pfannenstiel skin incision was made with scalpel down to and through the fascia. Fascia was extended laterally using curved Alvarez scissors. The superior edge of the fascia was grasped with two Niles clamps and dissected free of the abdominal rectus muscles using blunt dissection along with Bovie cautery. The same process took place inferiorly. The abdominal rectus was dissected bluntly at the midline. Peritoneum was grasped with 2 hemostats and entered sharply with Metzenbaum scissors. This incision was extended superiorly as well as inferiorly. The Darci ring retractor was placed. A low transverse hysterotomy incision with a scalpel down to the amniotic sac. Hysterotomy incision was extended laterally and superiorly digitally. Amniotomy was performed with Allis clamp, which elicited a moderate amount of clear fluid. With the aid of fundal pressure, the infant's head was delivered in a smooth atraumatic manner. Nuchal cord x 1 was visualized and reduced. With additional fundal pressure, the anterior shoulder was delivered followed by posterior shoulder and rest of male was delivered. Infant was suctioned with bulb syringe orally and nasally, umbilical cord was clamped twice and cut and viable male infant was handed to waiting nursing staff. Umbilical cord blood was then obtained. Three-vessel cord placenta was delivered manually intact. The uterus was then exteriorized and cleared of clot and debris with a moist lap. Hysterotomy incision was reapproximated using #1 Vicryl suture in running locked fashion and imbricated layer of #1 Vicryl suture was utilized for better hemostasis. The uterus palpated firm. Fallopian tubes, ovaries appeared normal bilaterally. Posterior cul-de-sac was cleared of clot and debris with moist lap. The uterus was then returned to the abdomen. The pericolic gutters were cleared of clot and debris with moist lap. Hysterotomy incision was reviewed and was hemostatic. The Darci ring retractor was removed. Peritoneum was reapproximated using #1 Vicryl suture in a running fashion. Fascia was reapproximated using 0 Vicryl suture in running fashion. Skin was reapproximated using 4-0 Vicryl suture in a subcuticular manner. The patient tolerated the procedure well and was taken to the recovery room in stable condition. Sponge and needle count correct x 3. GREG ROSEN MD DR: BRAD/ahmet JOB#: [id number] / [id number]
[2018-08-25] MEDS ORDERED: METOCLOPRAMIDE 10 MG TABLET. PO PRN (13:00)
[2018-08-25] MEDS ORDERED: METOCLOPRAMIDE HCL 10 MG/2 ML VIAL. IV PRN (13:00)
[2018-08-25] MEDS ORDERED: INSULIN LISPRO SQ SCH (17:00)
[2018-08-25] MEDS ORDERED: FERROUS SULFATE 325 MG TABLET. PO SCH (17:00)
[2018-08-26] MEDS: INSULIN GLARGINE SQ SCH ×2 (00:11→23:05)
[2018-08-26 00:15] VITALS: BP 143/75
[2018-08-26] MEDS: oxyCODONE/APAP 5/325 1 TAB TABLET PO PRN ×4 (05:05→23:02)
[2018-08-26] MEDS: IBUPROFEN 400 MG TABLET. PO PRN ×2 (05:05→17:03)
[2018-08-26 06:02] LABS: BASO % 0 % (0-3); EOS # 0.1 x10^3/uL (0.0-0.7); EOS % 1 % (0-3); HEMATOCRIT 28.8 % (36.0-47.0); HEMOGLOBIN 10.2 g/dL (12.0-15.5); LYMPH % 16 % (24-48); MEAN CORPUSCULAR HEMOGLOBIN 32 pg (25-35); MEAN CORPUSCULAR HGB CONC 36 g/dL (31-37); MEAN CORPUSCULAR VOLUME 89 fL (79-100); MONO # 0.4 x10^3/uL (0.0-1.1); MONO % 6 % (0-9); NEUT # 4.7 x10^3uL (1.8-7.7); NEUT % 76 % (31-73); PLATELET COUNT 103 x10^3/uL (140-400); RED BLOOD COUNT 3.24 x10^6/uL (3.50-5.40); RED CELL DISTRIBUTION WIDTH 13.3 % (11.5-14.5); WHITE BLOOD COUNT 6.2 x10^3/uL (4.0-11.0)
[2018-08-26 07:03] VITALS: BP 135/80
[2018-08-26] MEDS: DOCUSATE SODIUM 100 MG CAPSULE. PO PRN ×2 (10:22→17:02)
[2018-08-26 10:25] VITALS: BP 138/77
--- NOTE | 2018-08-26 14:29 | PDOC ---
Provider Note Provider Note Doing well Dressing [facility] Vital Sign - Last 24 Hours 08/25/18 08/25/18 08/26/18 08/26/18 15:32 17:00 00:15 05:05 Temp 97.9 97.7 98.4 97.9 97.7 98.4 Pulse 76 61 70 Resp 20 20 18 18 B/P (MAP) 134/80 (98) 138/84 (102) 143/75 (97) Pulse Ox 97 98 95 O2 Delivery Room Air Room Air Room Air Room Air 08/26/18 08/26/18 06:05 07:03 Temp 98.6 98.6 Pulse 71 Resp 18 18 B/P (MAP) 135/80 (98) Pulse Ox 97 O2 Delivery Room Air Room Air Intake and Output 08/25/18 08/25/18 08/26/18 15:00 23:00 07:00 Intake Total 1050 ml 900 ml 2460 ml Output Total 350 ml 400 ml 2850 ml Balance 700 ml 500 ml -390 ml CBC - BMP 08/26/18 05:07 LILLIE CLEMONS MD August 26, 2018 14:29
[2018-08-26 14:52] VITALS: BP 139/77
[2018-08-26 21:21] VITALS: BP 151/101
[2018-08-26 23:00] VITALS: BP 149/94
[2018-08-27 05:43] VITALS: BP 131/80
[2018-08-27] MEDS: DOCUSATE SODIUM 100 MG CAPSULE. PO PRN ×2 (06:12→11:24)
[2018-08-27] MEDS: oxyCODONE/APAP 5/325 1 TAB TABLET PO PRN ×3 (06:12→19:47)
[2018-08-27] MEDS: IBUPROFEN 400 MG TABLET. PO PRN ×2 (06:12→17:36)
--- NOTE | 2018-08-27 08:16 | PDOC ---
OB Progress Note Date of Service 08/27/18 Time of Evaluation 0815 Notes PT. feeling well. No complaints. Blood sugars good control on pregestational insulin dosing. Lab Laboratory Tests Test 08/26/18 05:07 White Blood Count 6.2 x10^3/uL (4.0-11.0) Red Blood Count 3.24 x10^6/uL (3.50-5.40) Hemoglobin 10.2 g/dL (12.0-15.5) Hematocrit 28.8 % (36.0-47.0) Mean Corpuscular Volume 89 fL (79-100) Mean Corpuscular Hemoglobin 32 pg (25-35) Mean Corpuscular Hemoglobin Concent 36 g/dL (31-37) Red Cell Distribution Width 13.3 % (11.5-14.5) Platelet Count 103 x10^3/uL (140-400) Neutrophils (%) (Auto) 76 % (31-73) Lymphocytes (%) (Auto) 16 % (24-48) Monocytes (%) (Auto) 6 % (0-9) Eosinophils (%) (Auto) 1 % (0-3) Basophils (%) (Auto) 0 % (0-3) Neutrophils # (Auto) 4.7 x10^3uL (1.8-7.7) Lymphocytes # (Auto) 1.0 x10^3/uL (1.0-4.8) Monocytes # (Auto) 0.4 x10^3/uL (0.0-1.1) Eosinophils # (Auto) 0.1 x10^3/uL (0.0-0.7) Basophils # (Auto) 0.0 x10^3/uL (0.0-0.2) Medications Current Medications Ringer's Solution 1,000 ml @ 125 mls/hr Q8H IV Last administered on 08/25/18at 21:18; Start 08/25/18 at 06:00 Cefazolin Sodium/ Dextrose 50 ml @ 100 mls/hr 1X ONCE IV Last administered on 08/25/18at 06:18; Start 08/25/18 at 06:00; Stop 08/25/18 at 06:30; Status DC Citric Acid/ Sodium Citrate (Bicitra) 30 ml STK-MED ONCE .ROUTE ; Start 08/25/18 at 06:10; Stop 08/25/18 at 06:11; Status DC Citric Acid/ Sodium Citrate (Bicitra) 30 ml 1X ONCE PO Last administered on 08/25/18at 06:54; Start 08/25/18 at 06:30; Stop 08/25/18 at 06:31; Status DC Morphine Sulfate (Morphine Preservative Free) 5 mg STK-MED ONCE .ROUTE ; Start 08/25/18 at 07:47; Stop 08/25/18 at 07:48; Status DC Fentanyl Citrate (Fentanyl 2ml Vial) 100 mcg STK-MED ONCE .ROUTE ; Start 08/25/18 at 07:47; Stop 08/25/18 at 07:48; Status DC Phenylephrine HCl (PHENYLEPHRINE in 0.9% NACL PF) 1 mg STK-MED ONCE IV ; Start 08/25/18 at 07:47; Stop 08/25/18 at 07:48; Status DC Ephedrine Sulfate (ePHEDrine PF IN SALINE SYRINGE) 50 mg STK-MED ONCE IV ; Start 08/25/18 at 07:47; Stop 08/25/18 at 07:48; Status DC Famotidine (Pepcid Vial) 20 mg STK-MED ONCE .ROUTE ; Start 08/25/18 at 07:48; Stop 08/25/18 at 07:49; Status DC Ondansetron HCl (Zofran) 4 mg STK-MED ONCE .ROUTE ; Start 08/25/18 at 07:48; Stop 08/25/18 at 07:49; Status DC Metoclopramide HCl (Reglan Vial) 10 mg STK-MED ONCE .ROUTE ; Start 08/25/18 at 07:48; Stop 08/25/18 at 07:49; Status DC Oxytocin (Pitocin) 10 unit STK-MED ONCE .ROUTE ; Start 08/25/18 at 07:48; Stop 08/25/18 at 07:49; Status DC Oxytocin (Pitocin) 10 unit STK-MED ONCE .ROUTE ; Start 08/25/18 at 08:41; Stop 08/25/18 at 08:42; Status DC Sodium Chloride (Normal Saline Flush) 3 ml QSHIFT PRN IV AFTER MEDS AND BLOOD DRAWS; Start 08/25/18 at 09:00 Oxytocin/Sodium Chloride 500 ml @ 125 mls/hr CONT PRN IV EXCESSIVE POST- BLEEDING; Start 08/25/18 at 09:00; Stop 08/25/18 at 16:59; Status DC Ibuprofen (Motrin) 800 mg PRN Q4HRS PRN PO INFLAMMATION Last administered on 08/27/18at 06:12; Start 08/25/18 at 09:00 Ondansetron HCl (Zofran) 4 mg PRN Q6HRS PRN IV NAUSEA/VOMITING Last administered on 08/25/18at 11:52; Start 08/25/18 at 09:00 Docusate Sodium (Colace) 100 mg PRN BID PRN PO CONSTIPATION Last administered on 08/27/18 06:12; Start 08/25/18 at 09:00 Al Hydroxide/Mg Hydroxide (Mylanta Plus Xs) 30 ml PRN Q4HRS PRN PO HEARTBURN / GAS; Start 08/25/18 at 09:00 Simethicone (Gas-X) 80 mg PRN AFTMEALHC PRN PO GAS / BLOATING; Start 08/25/18 at 09:00 Diphenhydramine HCl (Benadryl Oral Elixir) 12.5 mg PRN Q6HRS PRN PO ITCHING Last administered on 08/26/18at 05:04; Start 08/25/18 at 09:00 Ferrous Sulfate (Feosol) 325 mg BIDWMEALS PO ; Start 08/25/18 at 17:00 Zolpidem Tartrate (Ambien) 5 mg PRN QHS PRN PO INSOMNIA, MAY REPEAT X1; Start 08/25/18 at 09:00 Oxycodone/ Acetaminophen (Percocet 5/325) 2 tab PRN Q4HRS PRN PO MODERATE PAIN, SEVERE PAIN Last administered on 08/27/18at 06:12; Start 08/25/18 at 09:00 Ketorolac Tromethamine (Toradol 30mg Vial) 30 mg PRN Q6HRS PRN IV PAIN Last administered on 08/25/18at 11:28; Start 08/25/18 at 09:00; Stop 08/30/18 at 08:59 Metoclopramide HCl (Reglan Vial) 10 mg PRN Q6HRS PRN IV NAUSEA/VOMITING Last administered on 08/25/18at 13:00; Start 08/25/18 at 13:00 Metoclopramide HCl (Reglan) 10 mg PRN Q6HRS PRN PO NAUSEA/VOMITING; Start 08/25/18 at 13:00 Non-Formulary Medication 18 ea QHS SQ Last administered on 08/26/18at 23:05; Start 08/25/18 at 21:00 Non-Formulary Medication 1 ea TIDWMEALS SQ ; Start 08/25/18 at 17:00 Active Scripts Active Reported Tablet (Pnv Cmb#95/Ferrous Fumarate/Fa) 1 Each Tablet 1 Tab PO DAILY Synthroid (Levothyroxine Sodium) 25 Mcg Tablet 1 Tab PO DAILY Lantus Solostar (Insulin Glargine,Hum.rec.anlog) 100 Unit/1 Ml Insuln.pen 28 Unit SQ QHS Humalog (Insulin Lispro) 100 Unit/1 Ml Cartridge 0-12 Unit SQ TIDBFRMEAL PRN PRN Exam Abd: soft, mild tenderness, fundus firm Incision site: clean, dry and intact Assessment POD#2 s/p c/s Plan of Care: Continue current Tx, Mgmt GREG TAPIA Jr, MD August 27, 2018 08:16
[2018-08-27] MEDS ORDERED: DOCUSATE SODIUM 283 MG/5 ML ENEMA. PR PRN (11:30)
[2018-08-27] MEDS ORDERED: BISACODYL 10 MG SUPP.RECT. PR PRN (11:30)
[2018-08-27 14:20] VITALS: BP 138/84
[2018-08-27 23:17] VITALS: BP 156/100
[2018-08-28] MEDS: oxyCODONE/APAP 5/325 1 TAB TABLET PO PRN ×3 (00:02→11:18)
[2018-08-28] MEDS: IBUPROFEN 400 MG TABLET. PO PRN ×2 (00:02→09:28)
[2018-08-28 06:19] VITALS: BP 145/92
[2018-08-28] MEDS ORDERED: DIPHTH,PERTUSS(ACELL),TET TOX 0.5 ML DISP.SYRIN. VAX IM ONE (09:00)
--- NOTE | 2018-08-28 09:54 | PDOC3 ---
OB DISCHARGE SUMMARY DATE OF ADMISSION: 08/25/18 DATE OF DISCHARGE: 08/28/18 REASON FOR ADMISSION: section (DM type 1 and LGA) INTRAPARTUM PROCEDURES: : Low Cerv Trans DISCHARGE DIAGNOSIS: Term Delivered DISCHARGE INFORMATION: Activity (ad aarti), Diet (regular diet), Instructions (pelvic rest x 6 wks, no driving x 2 wks, no lifting > 20 lbs. x 4 wks) HOSPITAL COURSE Term gestation delivered section without complications. GREG TAPIA Jr, MD August 28, 2018 09:54
[2018-08-28] MEDS ORDERED: IBUP-1027 PO (09:56)
[2018-08-28] MEDS ORDERED: DOCU-109 PO (09:56)
[2018-08-28] MEDS ORDERED: OXYC1TAB15 PO (09:56)
--- NOTE | 2018-08-28 09:57 | DISCH ---
DISCHARGE INSTRUCTIONS Condition on Discharge Condition on Discharge: Stable Activity After Discharge Activity Instructions for Disc: Activity as tolerated Lifting Instructions after Dis: No heavy lifting Driving Instructions after Dis: No driving for 2 weeks Diet after Discharge Diet after Discharge: Regular Contacting the [facility] after DC Call your doctor for: Concerns you may have Follow-Up Follow Up With: Dr. Rosen in 2 wks. GREG ROSEN Jr, MD August 28, 2018 09:57
[2018-08-28 12:20] VITALS: BP 144/85
== END 2018-08-28 12:20 | disposition home or self-care (01) | DRG 787 ==
LOC: 3 SO LND 05:22
PROVIDERS: ADMIT Obstetrics & Gynecology; ATTEND Obstetrics & Gynecology
PROC: 10D00Z1 Extraction of Products of Conception, Low, Open Approach (ICD-10-PCS; principal; 2018-08-25)
DX: O36.63X0 Maternal care for excessive fetal growth, third trimester, not applicable or unspecified (principal); O24.013 Pre-existing type 1 diabetes mellitus, in pregnancy, third trimester; O69.81X0 Labor and delivery complicated by cord around neck, without compression, not applicable or unspecified; Z37.0 Single live birth; Z3A.37 37 weeks gestation of pregnancy; Z79.4 Long term (current) use of insulin
CPT/HCPCS: 36415; 82947; 85025; 86592; 86850; 86900; 86901; 90471; 90715; J0171; J0696; J1885; J2270; J2370; J2405; J2590; J2765; J3010; J3490; J7120

== ENCOUNTER → 2018-12-27 | Outpatient (CLI) | payer OTHER ==
[~2018-12-27] MED LIST changes: +DOCU-109 PO; +IBUP-1027 PO; +OXYC1TAB15 PO
[2018-12-27 14:48] LABS: FREE T4 1.03 ng/dL (0.76-1.46); THYROID STIM HORMONE (TSH) 1.685 uIU/mL (0.358-3.74)
[2018-12-29 02:08] LABS: HEMOGLOBIN A1C 5.7 % (4.8-5.6)
== END | disposition home or self-care (01) ==
LOC: LAB 11:08
PROVIDERS: ATTEND Family Medicine
DX: E11.649 Type 2 diabetes mellitus with hypoglycemia without coma (principal); E03.9 Hypothyroidism, unspecified
CPT/HCPCS: 36415; 83036; 84439; 84443

== ENCOUNTER → 2019-05-24 | Outpatient (CLI) | payer OTHER ==
[2019-05-24 13:52] LABS: BASO % 1 % (0-3); EOS # 0.1 x10^3/uL (0.0-0.7); EOS % 3 % (0-3); HEMATOCRIT 38.4 % (36.0-47.0); HEMOGLOBIN 13.5 g/dL (12.0-15.5); LYMPH # 1.5 x10^3/uL (1.0-4.8); LYMPH % 29 % (24-48); MEAN CORPUSCULAR HEMOGLOBIN 30 pg (25-35); MEAN CORPUSCULAR HGB CONC 35 g/dL (31-37); MEAN CORPUSCULAR VOLUME 86 fL (79-100); MONO # 0.3 x10^3/uL (0.0-1.1); MONO % 7 % (0-9); NEUT # 3.1 x10^3/uL (1.8-7.7); NEUT % 61 % (31-73); PLATELET COUNT 255 x10^3/uL (140-400); RED BLOOD COUNT 4.46 x10^6/uL (3.50-5.40); RED CELL DISTRIBUTION WIDTH 13.3 % (11.5-14.5)
[2019-05-24 14:14] LABS: ALBUMIN/GLOBULIN RATIO 1.1 (1.0-1.7); CALCIUM 9.1 mg/dL (8.5-10.1); CREATININE 0.7 mg/dL (0.6-1.0); GFR 100.4; TOTAL BILIRUBIN 0.4 mg/dL (0.2-1.0); TOTAL PROTEIN 7.5 g/dL (6.4-8.2)
[2019-05-24 14:18] LABS: BILIRUBIN,URINE NEGATIVE (NEG); CLARITY,URINE CLEAR; COLOR,URINE YELLOW; NITRITE,URINE NEGATIVE (NEG); PH,URINE 5.5; PROTEIN,URINE NEGATIVE (NEG-TRACE); UROBILINOGEN,URINE 0.2 mg/dL (0.2 mg/dL)
[2019-05-24 14:22] LABS: CHOLESTEROL/HDL RATIO 2.3
[2019-05-24 14:24] LABS: FREE T4 1.18 ng/dL (0.76-1.46); THYROID STIM HORMONE (TSH) 5.11 uIU/mL (0.358-3.74)
[2019-05-24 14:36] LABS: SQUAMOUS EPITHELIAL CELL,UR MOD /LPF
[2019-05-24 14:37] LABS: BACTERIA,URINE 0 /HPF (0-FEW); RBC,URINE 0 /HPF (0-2); WBC,URINE 0 /HPF (0-4)
[2019-05-25 01:07] LABS: HEMOGLOBIN A1C 6.3 % (4.8-5.6)
== END | disposition home or self-care (01) ==
LOC: ER 12:41
PROVIDERS: ATTEND Family Medicine
DX: Z00.00 Encounter for general adult medical examination without abnormal findings (principal); E11.649 Type 2 diabetes mellitus with hypoglycemia without coma; E03.9 Hypothyroidism, unspecified
CPT/HCPCS: 36415; 80053; 80061; 81001; 82043; 83036; 84439; 84443; 85025

== ENCOUNTER → 2020-02-24 | Outpatient (CLI) | payer OTHER ==
[2020-02-24 10:42] LABS: BASO % 0 % (0-3); EOS # 0.1 x10^3/uL (0.0-0.7); EOS % 1 % (0-3); HEMATOCRIT 35.2 % (36.0-47.0); HEMOGLOBIN 12.5 g/dL (12.0-15.5); LYMPH % 22 % (24-48); MEAN CORPUSCULAR HEMOGLOBIN 31 pg (25-35); MEAN CORPUSCULAR HGB CONC 36 g/dL (31-37); MEAN CORPUSCULAR VOLUME 86 fL (79-100); MONO # 0.3 x10^3/uL (0.0-1.1); MONO % 7 % (0-9); NEUT # 3.3 x10^3/uL (1.8-7.7); NEUT % 70 % (31-73); PLATELET COUNT 228 x10^3/uL (140-400); RED BLOOD COUNT 4.09 x10^6/uL (3.50-5.40); RED CELL DISTRIBUTION WIDTH 12.4 % (11.5-14.5); WHITE BLOOD COUNT 4.7 x10^3/uL (4.0-11.0)
[2020-02-24 11:01] LABS: FREE T4 1.19 ng/dL (0.76-1.46); THYROID STIM HORMONE (TSH) 3.508 uIU/mL (0.358-3.74)
== END ==
LOC: LAB 09:35
PROVIDERS: ATTEND Obstetrics & Gynecology
DX: O34.219 Maternal care for unspecified type scar from previous cesarean delivery (principal); E13.9 Other specified diabetes mellitus without complications
CPT/HCPCS: 36415; 84439; 84443; 85025; 86592; 86703; 86762; 86850; 86900; 86901; 87340

== ENCOUNTER → 2020-03-13 | Outpatient (CLI) | payer OTHER ==
[2020-03-13 22:14] LABS: FREE T4 1.09 ng/dL (0.76-1.46); THYROID STIM HORMONE (TSH) 5.14 uIU/mL (0.358-3.74)
[2020-03-15 01:09] LABS: HEMOGLOBIN A1C 5.9 % (4.8-5.6)
== END ==
LOC: LAB 21:28
PROVIDERS: ATTEND Family Medicine
DX: E03.9 Hypothyroidism, unspecified (principal); E11.649 Type 2 diabetes mellitus with hypoglycemia without coma
CPT/HCPCS: 36415; 83036; 84439; 84443

== ENCOUNTER → 2020-07-03 | Outpatient (CLI) | payer OTHER ==
[2020-07-04 06:58] LABS: FREE T4 1.11 ng/dL (0.76-1.46); THYROID STIM HORMONE (TSH) 2.899 uIU/mL (0.358-3.74)
== END ==
LOC: LAB 22:49
PROVIDERS: ATTEND Obstetrics & Gynecology
DX: Z34.92 Encounter for supervision of normal pregnancy, unspecified, second trimester (principal); Z3A.00 Weeks of gestation of pregnancy not specified
CPT/HCPCS: 36415; 84439; 84443

== ENCOUNTER → 2020-07-27 | Outpatient (CLI) | payer OTHER ==
[2020-07-27 13:37] LABS: BASO # 0.1 x10^3/uL (0.0-0.2); BASO % 1 % (0-3); EOS # 0.1 x10^3/uL (0.0-0.7); EOS % 1 % (0-3); HEMATOCRIT 32.5 % (36.0-47.0); HEMOGLOBIN 11.4 g/dL (12.0-15.5); LYMPH # 1.1 x10^3/uL (1.0-4.8); LYMPH % 15 % (24-48); MEAN CORPUSCULAR HEMOGLOBIN 31 pg (25-35); MEAN CORPUSCULAR HGB CONC 35 g/dL (31-37); MEAN CORPUSCULAR VOLUME 88 fL (79-100); MONO # 0.5 x10^3/uL (0.0-1.1); MONO % 6 % (0-9); NEUT # 5.7 x10^3/uL (1.8-7.7); NEUT % 77 % (31-73); PLATELET COUNT 199 x10^3/uL (140-400); RED BLOOD COUNT 3.69 x10^6/uL (3.50-5.40); WHITE BLOOD COUNT 7.4 x10^3/uL (4.0-11.0)
== END ==
LOC: LAB 13:06
PROVIDERS: ATTEND Obstetrics & Gynecology
DX: Z34.93 Encounter for supervision of normal pregnancy, unspecified, third trimester (principal); E10.9 Type 1 diabetes mellitus without complications; Z3A.00 Weeks of gestation of pregnancy not specified
CPT/HCPCS: 36415; 82306; 83036; 85025; 86592; 86850; 86900; 86901; 87340

== ENCOUNTER → 2020-09-03 | Outpatient (CLI) | payer OTHER ==
[2020-09-03 12:10] LABS: FREE T4 1.06 ng/dL (0.76-1.46); THYROID STIM HORMONE (TSH) 2.165 uIU/mL (0.358-3.74)
== END ==
LOC: LAB 10:58
PROVIDERS: ATTEND Obstetrics & Gynecology
DX: Z34.93 Encounter for supervision of normal pregnancy, unspecified, third trimester (principal); E03.9 Hypothyroidism, unspecified; E55.9 Vitamin D deficiency, unspecified
CPT/HCPCS: 36415; 82306; 84439; 84443